=== PATIENT | female | born 1980 | race Caucasian/White ===

== ENCOUNTER 2017-04-20 05:01 | Emergency (ER) | payer MEDICAID ==
[~2017-04-20] VITALS: Ht 157.5 cm; Wt 102.5 kg
[2017-04-20 05:07] VITALS: BP 138/85; Ht 157.5 cm; Wt 102.5 kg
== END 2017-04-20 06:00 | disposition home or self-care (01) ==
LOC: ED 05:01
DX: H66.91 Otitis media, unspecified, right ear (principal); K11.20 Sialoadenitis, unspecified
CPT/HCPCS: J1885